=== PATIENT | male | born 1970 | race Caucasian/White ===

== ENCOUNTER 2021-11-15 20:30 | Emergency (ER) | payer MEDICARE, MEDICAID, SELFPAY ==
[2021-11-15 22:58] VITALS: BP 125/85; PULSE 97; RESP 16; TEMP 36.4; O2SAT 99; BMI 25.1
[2021-11-15] MEDS: Diphth,Pertus(ACell),Tet Adult 0.5 ML SYRINGE IM (23:11)
--- NOTE | 2021-11-15 23:16 | ED_ITS ---
HPI - Wound/Laceration General Chief Complaint: Wound/Laceration Stated Complaint: knife puncture on right hand Time Seen by Provider: 11/15/21 23:02 Source: patient and interpreter deaf Mode of arrival: ambulatory Limitations: language barrier History of Present Illness HPI narrative: 51-year-old male [id number] here with reports of left hand laceration after he was cutting chicken and his hand slipped causing him to cut his left hand with a knife. Tetanus status is unknown Related Data Allergies Allergy/AdvReac Type Severity Reaction Status Date / Time No Known Allergies Allergy Verified 11/15/21 23:02 Review of Systems Review of Systems: Yes all other systems are reviewed and are negative Constitutional: Constitutional: Reports no additional constitutional complaints, Denies body ache(s), Denies chills, Denies fever(s), Denies headache(s) and Denies weakness Eyes: Eyes: Reports no additional eye complaints and Denies change in vision ENT: Reports system reviewed and no additional complaints, except as documented, Denies dizziness, Denies headache(s), Denies nasal congestion, Denies nasal discharge and Denies neck pain Cardiovascular: Cardiovascular: Reports no additional cardiovascular complaints, Denies chest pain, Denies leg edema and Denies dyspnea Respiratory: Respiratory: Reports no additional respiratory complaints, Denies cough and Denies dyspnea Gastrointestinal: Gastrointestinal: Reports no additional gastrointestinal complaints, Denies abdominal pain, Denies diarrhea, Denies nausea and Denies vomiting Genitourinary: Genitourinary: Denies urinary incontinence Musculoskeletal: Musculoskeletal: Reports no additional musculoskeletal complaints, Denies back pain, Denies arthralgias, Denies joint swelling, Denies neck pain, Denies numbness and Denies tingling Integumentary/Breasts: Skin/Breast: Reports system reviewed and no additional complaints, except as docu and Denies rash Comments: Laceration Neurologic: Reports system reviewed and no additional complaints, except as documented, Denies Abnormal speech present, Denies dizziness, Denies headache(s), Denies numbness, Denies tingling and Denies weakness PMFSH Past Medical History Attestation statement: The following information was validated with the patient. Source: old records reviewed and nursing notes reviewed Social History Social History Advance Directives: No Advance Directives Information Provided: No Physical Exam Vital Signs: Vital Signs: Last Vital Signs Temp 97.5 F 11/15/21 22:58 Pulse 97 11/15/21 22:58 Resp 16 11/15/21 22:58 BP 125/85 11/15/21 22:58 Pulse Ox 99 11/15/21 22:58 BMI result Body Mass Index 25.1 Const: General: cooperative, healthy appearing, comfortable and no acute distress Orientation/consciousness: patient oriented x3 Limitations: no limitations HEENT: Head: Yes normal to inspection Ears: hearing grossly normal bilaterally General nose exam: Normal external nose present Face and sinus: Yes normal facial exam Mouth: Normal oral and palatal mucosa present Throat: Yes posterior oropharynx normal Eyes: General: appearance normal, both eyes and all related structures Pupils: Equal, round and reactive pupils present Neck: Neck: Yes normal visual inspection Chest: Chest palpation & inspection: normal inspection of the chest Resp: Effort & Inspection: normal respiratory effort Auscultation: clear to auscultation bilaterally Cardio: Rate: regular rate Rhythm: regular rhythm Peripheral pulses: Peripheral pulses 2+ throughout GI: Inspection: Yes normal to inspection Palpation (GI): Soft to palpation and nontender Auscultation: normal bowel sounds Back/Spine/Pelvis: Thoracic/Lumbar Spine: thoracic and lumbar spine normal to inspection Skin: General skin exam: no rashes or lesions noted Neuro: General: patient oriented x3, no focal motor deficits and normal sensation to monofilament Cranial nerves: Yes Equal, round and reactive pupils present Cognition (Neuro): normal cognition Speech: No Abnormal speech present Gait exam (Neuro): Normal gait present Motor exam (neuro): 5/5 motor strength present throughout Extrem: General: Yes normal to inspection Hand/finger images: 1. 1 cm laceration. Bleeding is controlled. Patient has full range of motion of distal digits. Normal sensation. Normal c ap refill. Able to flex and extend the digits with no difficulty Course Course Course Narrative: Laceration to left hand from a kitchen knife. The site was cleansed with saline and Betadine (irrigated copiously with 1 L). Topical skin adhesive was used with Steri-Strips. Patient's tetanus was updated. Reviewed worrisome signs and symptoms of when to return to the emergency department. Comfortable discharge home. MDM - Wound/Laceration Differential Diagnosis Differential diagnosis: Likely laceration Medical Records Attestation: I reviewed the patient's medical records. Lab Data Attestation: I reviewed the patient's lab results. Procedures Laceration Laceration 1: Site: hand Side (If applicable): left Size (cm): 1 Description: linear Depth: simple, single layer Pre-repair: wound explored, irrigated extensively and deep structures intact Skin layer closed with: other (skin adhesive/steri strips) Discharge Plan Discharge Clinical Impression: Laceration Patient Disposition: Home, Self-Care Instructions: Laceration (DC), Steristrips (ED) Additional Instructions: Try to let the Steri-Strips stay in place for 5 days. Do not get them wet Return for signs of infection, fever, drainage, odor Referrals: Physician,None [Primary Care Provider] - Interventions: ED Discharge Assessment Last Done: 11/15/21 23:16
== END 2021-11-15 23:16 | disposition home or self-care (01) ==
LOC: HO.ED 23:06
PROVIDERS: Emergency Provider Internal Medicine
DX: S61.411A Laceration without foreign body of right hand, initial encounter (principal); W26.0XXA Contact with knife, initial encounter; Y93.G3 Activity, cooking and baking; Y92.9 Unspecified place or not applicable; Y99.9 Unspecified external cause status
CPT/HCPCS: 12001; 90471; 90715; 99283; 99284

== ENCOUNTER 2022-05-21 22:06 | Emergency (ER) | payer MEDICARE, MEDICAID, SELFPAY ==
--- NOTE | ~2022-05-21 | US_ITS ---
EXAMINATION: US ABDOMEN LIMITED CLINICAL INFORMATION: Evaluate for acute cholecystitis. COMPARISON: None TECHNIQUE: Real-time imaging of the right upper quadrant abdominal viscera. FINDINGS: Cholelithiasis with small amount of pericholecystic free fluid. No evidence of gallbladder wall thickening. Negative Arzola's sign. The common bile duct measures 0.4 cm in diameter. US/US abdomen limited IMPRESSION: Cholelithiasis with mild pericholecystic free fluid but not significant wall thickening and a negative Arzola's sign. Findings are equivocal for mild acute cholecystitis in the appropriate clinical context. No biliary ductal dilatation.
--- NOTE | ~2022-05-21 | CT_ITS ---
EXAMINATION: CT ABDOMEN AND PELVIS WITHOUT CONTRAST CLINICAL INFORMATION: Left lower quadrant pain. COMPARISON: None TECHNIQUE: Multidetector volumetric imaging was performed from the superior aspect of the liver through the pubic symphysis. Sagittal and coronal reformatted images were obtained on the technologist's workstation. This CT examination was performed using dose optimization techniques as appropriate, variously including the following: *Automated exposure control *Adjustment of mA and/or kV according to patient size (this includes techniques or standardized protocols for targeted exams where dose is matched to indication/reason for exam; i.e. extremities or head) *Use of iterative reconstruction technique DLP: 554 mGy-cm FINDINGS: LUNG BASES: Limited evaluation due to respiratory motion. No focal consolidation or pleural effusion. Cardiomegaly. LIVER, GALLBLADDER, AND BILIARY TREE: Periportal edema. No discrete focal liver lesion in this limited noncontrast examination. Cholelithiasis with mild gallbladder wall thickening and mild pericholecystic fat stranding. No biliary ductal dilatation. PANCREAS: Limited noncontrast examination, unremarkable. SPLEEN: Limited noncontrast examination, unremarkable. ADRENAL GLANDS: No adrenal mass. KIDNEYS AND URETERS: No nephrolithiasis or hydronephrosis. BLADDER: Unremarkable. GASTROINTESTINAL TRACT: Postsurgical changes from total colectomy with a right lower quadrant ileostomy and parastomal hernia. No evidence of bowel obstruction. Nonspecific presacral fat stranding and soft tissue thickening. ABDOMINAL WALL: Right lower quadrant parastomal hernia. LYMPH NODES: Prominent periportal and retroperitoneal lymph nodes, nonspecific. VASCULAR: Limited noncontrast examination. Abdominal aorta is of normal diameter. PELVIC VISCERA: Normal appearance of the prostate. OSSEOUS STRUCTURES: No acute or aggressive appearing osseous abnormalities. CT/CT abdomen pelvis wo IV con IMPRESSION: Limited noncontrast examination. 1. Cholelithiasis with mild gallbladder wall thickening and subtle pericholecystic fat stranding suggesting the presence of acute cholecystitis in the appropriate clinical context. 2. Right lower quadrant parastomal hernia. 3. Nonspecific presacral soft tissue thickening, free fluid and distortion, possibly postsurgical in the setting of prior colectomy. Attention on follow-up in subsequent examinations is recommended, comparison with prior imaging could be also helpful to ensure stability. 4. Prominent periportal and retroperitoneal lymph nodes are indeterminate, could be infectious, inflammatory or malignant. As above, attention on follow-up or correlation with prior images is recommended. 5. Cardiomegaly.
[2022-05-21 22:21] VITALS: BP 124/90; PULSE 114; RESP 16; TEMP 36.5; O2SAT 98; BMI 25.5
[2022-05-21 22:51] LABS: Basophils Percent Auto 0.2 % (0-2); Eosinophils Percent Auto 0.1 % (0-4); Hematocrit 41.4 % (42.0-52.0); Hemoglobin 12.5 g/dl (14.0-18.0); Imm Gran Abs Auto 0.02 X10*3/uL (0.00-0.03); Imm Gran Pct Auto 0.2 % (0.0-0.4); Lymphocytes Absolute Auto 1.4 X10*3/uL (1.2-4.9); Lymphocytes Percent Auto 16.3 % (20-40); MANUAL DIFF FLAG NO; Mean Corpuscular HGB Conc 30.2 g/dl (31.0-36.0); Mean Corpuscular Hemoglobin 21.9 pg (27.0-33.0); Mean Corpuscular Volume 72.6 fL (80.0-98.0); Mean Platelet Volume 10.3 fL (9.4-12.4); Monocytes Absolute Auto 0.5 X10*3/uL (0.1-1.2); Neutrophils Absolute Auto 6.6 x10*3/uL (2.0-8.3); Neutrophils Percent Auto 77.2 % (45-73); Platelet Count 222 X10*3/uL (160-400); Red Cell Distribution Width 17.3 % (11.0-16.0); White Blood Count 8.5 X10*3/uL (4.8-10.8)
[2022-05-21 22:53] LABS: Appearance Urine Clear; Color Urine Yellow; Glucose Urine UA Negative (Negative); Leukocyte Esterase Urine Negative (Negative); Nitrite Urine Negative (Negative); Specific Gravity - Urine 1.025 (1.005-1.025); UMIC TRIGGER UACC YES; Urine Blood Negative (Negative); Urine Ketones Negative (Negative); Urine Protein 100 (2+) mg/dL (Neg-Trace)
[2022-05-21 23:02] LABS: Bacteria Urine None Seen (None Seen); RBC Urine 0-2 /HPF (0-2); Squamous Epithelial Cell Urine 0-2 /HPF (0-2); WBC Urine 0-5 /HPF (0-5)
[2022-05-21 23:15] LABS: Anion Gap 17 (12-20); Blood Urea Nitrogen 15 mg/dL (9-16); Carbon Dioxide 20 mmol/L (22-29); Chloride 107 mmol/L (96-108); Creatinine Clr Calc Pharmacy 75.6; Estimated Glomerular Filt Rate > 60; Glucose Random 161 mg/dL (60-115); Potassium 4.4 mmol/L (3.3-5.1); Sodium 140 mmol/L (135-145)
--- NOTE | 2022-05-22 01:24 | ED_ITS ---
HPI - Abdominal Pain General Chief Complaint: Abdominal Pain Stated Complaint: upper abd pain Time Seen by Provider: 05/22/22 01:18 Source: patient Mode of arrival: ambulatory History of Present Illness HPI narrative: Patient's history of colonic polyps precancerous status post total colectomy in 2000 comes here for pain in the left lower quadrant for last 2 days slightly nauseated vomited 2 times no fever no chills no pain in right upper quadrant stool in the colostomy bag normal in consistency no urinary complaints Related Data Previous Rx's Medication Instructions Recorded tramadol 50 mg tablet 50 mg PO Q6H PRN pain #20 tabs 05/22/22 Allergies Allergy/AdvReac Type Severity Reaction Status Date / Time No Known Allergies Allergy Verified 11/15/21 23:02 Review of Systems Review of Systems Yes all other systems are reviewed and are negative [facility] Past Medical History Medical History (Updated 05/22/22 @ 05:12 by Vikas Lilly MD) Colonic polyp Surgical History (Updated 05/22/22 @ 05:12 by Vikas Lilly MD) History of total colectomy Social History Social History Advance Directives: No Physical Exam ED Vital Signs: Vital Signs - 24 hr 05/21/22 22:21 05/22/22 01:29 05/22/22 03:17 Temperature 97.7 F 97.8 F Pulse Rate 114 H 106 H 99 Respiratory Rate 16 15 18 Blood Pressure 124/90 H 129/98 H 113/69 Pulse Oximetry 98 98 99 Oxygen Delivery Method Room Air Room Air Room Air 05/22/22 03:34 05/22/22 04:22 Temperature 98.0 F Pulse Rate 104 H 106 H Respiratory Rate 20 16 Blood Pressure 119/93 H 127/91 H Pulse Oximetry 100 97 Oxygen Delivery Method Room Air Room Air BMI result Body Mass Index 25.5 Appearance: Alert. Oriented X3. No acute distress. Eyes: No pallor or icterus ENT: Pharynx normal. Oral Mucosa moist Neck: Normal inspection. Neck supple. CVS: Normal heart rate and rhythm. Pulses normal. Respiratory: No respiratory distress. Equal air entry bilateral, no wheezing/rales/rhonchi Abdomen: Soft Colostomy bag in right lower quadrant tenderness left lower quadrant no rebound tenderness or guarding, Arzola sign negative, Bowel sounds are present, no mass palpable, no CVA tenderness Skin: Skin warm and dry. Normal skin color. Normal skin turgor. Extremities: No lower extremity edema. No calf tenderness Neuro: Oriented X 3. Medications Administered Discontinued Medications Generic Name Dose Route Start Last Admin Trade Name Freq PRN Reason Stop Dose Admin Morphine Sulfate 4 mg 05/22/22 04:02 05/22/22 04:16 Morphine Sulfate 4 Mg/Ml Cartridge IVPUSH 05/22/22 04:03 4 mg ONCE ONE Administration Protocol Ondansetron HCl 4 mg 05/22/22 04:02 05/22/22 04:16 Ondansetron Hcl 4 Mg/2 Ml Vial IVPUSH 05/22/22 04:03 4 mg ONCE ONE Administration MDM - Abdominal Pain MDM Narrative Medical decision making narrative: Patient left lower quadrant pain status post total colectomy etiology not very clear CT scan negative for any acute pathology in left lower abdomen. Incidental noticed to have gallstone but patient does not have any pain in the right upper quadrant patient advised to follow with PCP or surgeon for further evaluation Lab Data Attestation: I reviewed the patient's lab results. Result diagrams: 05/21/22 22:42 05/21/22 22:42 Labs: Lab Results 05/21/22 05/21/22 05/21/22 Range/Units 22:42 22:42 22:42 WBC 8.5 (4.8-10.8) X10*3/uL RBC 5.70 (4.60-5.80) X10*6/uL Hgb 12.5 L (14.0-18.0) g/dl Hct 41.4 L (42.0-52.0) % MCV 72.6 L (80.0-98.0) fL MCH 21.9 L (27.0-33.0) pg MCHC 30.2 L (31.0-36.0) g/dl RDW 17.3 H (11.0-16.0) % Plt Count 222 (160-400) X10*3/uL MPV 10.3 (9.4-12.4) fL Immature Gran % (Auto) 0.2 (0.0-0.4) % Neut % (Auto) 77.2 H (45-73) % Lymph % (Auto) 16.3 L (20-40) % [place] % (Auto) 6.0 (2-11) % Eos % (Auto) 0.1 (0-4) % Baso % (Auto) 0.2 (0-2) % Lymph # (Auto) 1.4 (1.2-4.9) X10*3/uL [place] # (Auto) 0.5 (0.1-1.2) X10*3/uL Eos # (Auto) 0.0 (0.0-0.4) X10*3/uL Baso # (Auto) 0.0 (0.0-0.2) X10*3/uL Abs Immat Gran (auto) 0.02 (0.00-0.03) X10*3/uL Absolute Neuts (auto) 6.6 (2.0-8.3) x10*3/uL Absolute Nucleated RBC 0.000 (0.0-0.012) X10*3/uL Nucleated RBC % (auto) 0.0 (0.0-0.2) /100WBC Sodium 140 (135-145) mmol/L Potassium 4.4 (3.3-5.1) mmol/L Chloride 107 (96-108) mmol/L Carbon Dioxide 20 L (22-29) mmol/L Anion Gap 17 (12-20) BUN 15 (9-16) mg/dL Creatinine 1.18 (0.5-1.4) mg/dL Estim Creat Clear Calc 75.6 Estimated GFR > 60 Random Glucose 161 H (60-115) mg/dL Lactic Acid (0.5-2.0) mmol/L Calcium 9.0 (8.4-10.2) mg/dL Total Bilirubin 1.5 H (0.0-1.0) mg/dL Direct Bilirubin 0.6 H (0.0-0.5) mg/dL AST 30 (5-37) U/L ALT 38 (0-40) U/L Alkaline Phosphatase 89 (39-117) U/L Total Protein 6.9 (6.5-8.0) g/dL Albumin 4.3 (3.5-5.0) g/dL Lipase 17 (8-78) U/L Urine Color Yellow Urine Appearance Clear Urine pH 5.0 (5.0-9.0) Ur Specific [place] 1.025 (1.005-1.025) Urine Protein 100 (2+) H (Neg-Trace) mg/dL Urine Glucose (UA) Negative (Negative) mg/dL Urine Ketones Negative (Negative) mg/dL Urine Blood Negative (Negative) Urine Nitrite Negative (Negative) Ur Leukocyte Esterase Negative (Negative) Urine RBC 0-2 (0-2) /HPF Urine WBC 0-5 (0-5) /HPF Ur Squamous Epith Cells 0-2 (0-2) /HPF Urine Bacteria None Seen (None Seen) Hyaline Casts 6-10 (0-2) /LPF 05/22/22 Range/Units 01:56 WBC (4.8-10.8) X10*3/uL RBC (4.60-5.80) X10*6/uL Hgb (14.0-18.0) g/dl Hct (42.0-52.0) % MCV (80.0-98.0) fL MCH (27.0-33.0) pg MCHC (31.0-36.0) g/dl RDW (11.0-16.0) % Plt Count (160-400) X10*3/uL MPV (9.4-12.4) fL Immature Gran % (Auto) (0.0-0.4) % Neut % (Auto) (45-73) % Lymph % (Auto) (20-40) % [place] % (Auto) (2-11) % Eos % (Auto) (0-4) % Baso % (Auto) (0-2) % Lymph # (Auto) (1.2-4.9) X10*3/uL [place] # (Auto) (0.1-1.2) X10*3/uL Eos # (Auto) (0.0-0.4) X10*3/uL Baso # (Auto) (0.0-0.2) X10*3/uL Abs Immat Gran (auto) (0.00-0.03) X10*3/uL Absolute Neuts (auto) (2.0-8.3) x10*3/uL Absolute Nucleated RBC (0.0-0.012) X10*3/uL Nucleated RBC % (auto) (0.0-0.2) /100WBC Sodium (135-145) mmol/L Potassium (3.3-5.1) mmol/L Chloride (96-108) mmol/L Carbon Dioxide (22-29) mmol/L Anion Gap (12-20) BUN (9-16) mg/dL Creatinine (0.5-1.4) mg/dL Estim Creat Clear Calc Estimated GFR Random Glucose (60-115) mg/dL Lactic Acid 1.6 (0.5-2.0) mmol/L Calcium (8.4-10.2) mg/dL Total Bilirubin (0.0-1.0) mg/dL Direct Bilirubin (0.0-0.5) mg/dL AST (5-37) U/L ALT (0-40) U/L Alkaline Phosphatase (39-117) U/L Total Protein (6.5-8.0) g/dL Albumin (3.5-5.0) g/dL Lipase (8-78) U/L Urine Color Urine Appearance Urine pH (5.0-9.0) Ur Specific [place] (1.005-1.025) Urine Protein (Neg-Trace) mg/dL Urine Glucose (UA) (Negative) mg/dL Urine Ketones (Negative) mg/dL Urine Blood (Negative) Urine Nitrite (Negative) Ur Leukocyte Esterase (Negative) Urine RBC (0-2) /HPF Urine WBC (0-5) /HPF Ur Squamous Epith Cells (0-2) /HPF Urine Bacteria (None Seen) Hyaline Casts (0-2) /LPF Discharge Plan Discharge Clinical Impression: Abdominal pain Patient Disposition: Home, Self-Care Additional Instructions: Cause of your lower abdominal pain is not clear-CT scan did not show any significant abdominal drain that area Incidentally noticed that you have gallstones Drink plenty of fluids Pain medicine as prescribed Report to the ER/PCP if increased pain in right upper abdomen/vomiting/fever Prescriptions: New tramadol 50 mg tablet 50 mg PO Q6H PRN (Reason: pain) Qty: 20 0RF
[2022-05-22 01:29] VITALS: BP 129/98; PULSE 106; RESP 15; TEMP 36.6; O2SAT 98
--- NOTE | 2022-05-22 01:31 | ECG_ITS ---
Test Reason : TACHYCARDIA Blood Pressure : / mmHG Vent. Rate : 101 BPM Atrial Rate : 101 BPM P-R Int : 156 ms QRS Dur : 164 ms QT Int : 416 ms P-R-T Axes : 059 -73 083 degrees QTc Int : 539 ms Sinus tachycardia Left axis deviation Left bundle branch block Abnormal ECG No previous ECGs available Referred By: Generic ED Physician Electronically Signed By:AHSAN WOOTEN MD
[2022-05-22 01:52] LABS: Alanine Aminotransferase 38 U/L (0-40); Albumin Level 4.3 g/dL (3.5-5.0); Alkaline Phosphatase 89 U/L (39-117); Aspartate Amino Transferase 30 U/L (5-37); Bilirubin Direct 0.6 mg/dL (0.0-0.5); Bilirubin Total 1.5 mg/dL (0.0-1.0); Lipase 17 U/L (8-78); Total Protein 6.9 g/dL (6.5-8.0)
[2022-05-22 02:17] LABS: Lactic Acid 1.6 mmol/L (0.5-2.0)
[2022-05-22 03:17] VITALS: BP 113/69; PULSE 99; RESP 18; O2SAT 99
[2022-05-22 03:34] VITALS: BP 119/93; PULSE 104; RESP 20; TEMP 36.7; O2SAT 100
[2022-05-22] MEDS: Morphine Sulfate 4 MG/ML CARTRIDGE IVPUSH (04:16)
[2022-05-22] MEDS: ondansetron HCL 4 MG/2 ML VIAL IVPUSH (04:16)
[2022-05-22 04:22] VITALS: BP 127/91; PULSE 106; RESP 16; O2SAT 97
[2022-05-22 05:21] VITALS: BP 110/85; PULSE 101; RESP 18; O2SAT 94
== END 2022-05-22 05:23 | disposition home or self-care (01) ==
PROVIDERS: Emergency Provider Internal Medicine
DX: R10.32 Left lower quadrant pain (principal); K80.20 Calculus of gallbladder without cholecystitis without obstruction; Z93.3 Colostomy status
CPT/HCPCS: 36415; 74176; 76705; 80048; 80076; 81001; 83605; 83690; 85025; 93005; 96374; 96375; 99284; 99285; J2270; J2405

== ENCOUNTER 2022-05-30 15:11 | Emergency (ER) | payer MEDICARE, MEDICAID, SELFPAY ==
[2022-05-30 15:44] VITALS: BP 119/77; PULSE 107; RESP 18; TEMP 36.8; O2SAT 99; BMI 23.6
--- NOTE | 2022-05-30 16:34 | ED_ITS ---
HPI - Wound/Laceration General Chief Complaint: Wound/Laceration Stated Complaint: Finger laceration Time Seen by Provider: 05/30/22 16:06 Source: patient Mode of arrival: ambulatory Limitations: language barrier (Kiswahili-speaking) History of Present Illness HPI narrative: Patient is a 52-year-old male with a past medical history of HTN, HLD, heart failure who presents to the ED today for evaluation of finger laceration on his left index finger. He states that about an hour ago he was trying to remove the metal piece from his shower when he pulled the piece and it cut his left index finger. He reports associated pain over the laceration. He stop the bleeding by holding pressure and wrapped his finger with a bandage and immediately came here for treatment. Denies any other complaints at this time. He reports an up-to-date tetanus within the last 2 years. Onset (ago): hour(s) (1) Extremity Location: left: hand (Left index finger) Body four view annotation: 1. Laceration Place: home Patient tetanus UTD: Yes Context: accidental Associated symptoms: pain Treatments prior to arrival: bandage Related Data Previous Rx's Medication Instructions Recorded tramadol 50 mg tablet 50 mg PO Q6H PRN pain #20 tabs 05/22/22 cephalexin 500 mg capsule 500 mg PO Q6H 7 days #28 caps 05/30/22 Allergies Allergy/AdvReac Type Severity Reaction Status Date / Time No Known Allergies Allergy Verified 11/15/21 23:02 Review of Systems Review of Systems: Constitutional : No Fever, No Chills, Cardiovascular : No Chest Pain, No SOB Respiratory : No Dyspnea Gastrointestinal : No abdominal pain Musculoskeletal : No Joint Swelling Skin : positive skin laceration, No Foreign bodies, No rash, No surrounding erythema Neuro : No Weakness, No Numbness/tingling Psych : No SI/HI/thoughts of self injury Yes all other systems are reviewed and are negative [facility] Past Medical History Attestation statement: The following information was validated with the patient. Source: old records reviewed, obtained from family and nursing notes reviewed Medical History Colonic polyp Surgical History History of total colectomy Social History Social History Advance Directives: No Advance Directives Information Provided: No Physical Exam Vital Signs: Vital Signs: Last Vital Signs Temp 98.2 F 05/30/22 15:44 Pulse 107 H 05/30/22 15:44 Resp 18 05/30/22 15:44 BP 119/77 05/30/22 15:44 Pulse Ox 99 05/30/22 15:44 O2 Del Method 05/30/22 15:44 BMI result Body Mass Index 23.6 vital signs have been reviewed as normal and appeared to be correct. Blood pressure normal Heart rate normal. Respiration rate normal. Temperature normal. Oxygen saturation normal. Appearance: Alert. Oriented X3. No acute distress. Head: Normal external exam. Normocephalic. Atraumatic. Eyes: PERRLA. EOMI. Conjunctiva and sclera normal. Eyelids normal. ENT: Pharynx normal. Uvula midline. Moist mucous membranes. Neck: Normal inspection. Neck supple. FROM. CVS: Normal heart rate and rhythm. Respiratory: No respiratory distress. Painless inspiration. Skin: A 1.5 cm linear laceration with a flap noted on the left distal index finger. no active bleeding, no erythema or edema noted. NVI. Skin warm and dry. Normal skin color. Normal skin turgor. Extremities: No lower extremity edema. Extremities exhibit normal range of motion. Extremities nontender. Neuro: Oriented X 3. No motor deficit. No sensory deficit. Reflexes normal. Normal steady gait. No focal neuro deficits noted. Vascular: + radial pulses/+ 2 distal pedal pulses/+2 dorsalis pedis b/l. Normal cap refill. No cyanosis noted to upper extremity nails and lower extremity toes nails. Course Course Course Narrative: Patient is a 52-year-old male with a past medical history of HTN, HLD, heart failure who presents to the ED today for evaluation of finger laceration on his left index finger. He states that about an hour ago he was trying to remove the metal piece from his shower when he pulled the piece and it cut his left index finger. He reports associated pain over the laceration. He stop the bleeding by holding pressure and wrapped his finger with a bandage and immediately came here for treatment. Denies any other complaints at this time. He reports an up-to-date tetanus within the last 2 years. A 1.5 cm linear laceration with a flap noted on the left distal index finger actively bleeding, no erythema or edema noted, NVI. Laceration was cleaned with copious amounts of saline as and prepped with iodine. 4 cc's of lidocaine 1% was used to anesthetize the area and 4 sutures of 4-0 nylon were placed. Sutures were wrapped with nonadherent dressing. Discussed keeping sutures covered for next 24-48 hours then leaving the sutures open to air, avoiding soaking/submerging the sutures, and looking for signs of infection. Discussed returning in 10 days for suture removal. Will prescribe tramadol for pain and Keflex for infection prophylaxis. Patient verbalizes understanding and agrees with plan. Medications Administered Discontinued Medications Generic Name Dose Route Start Last Admin Trade Name Freq PRN Reason Stop Dose Admin Lidocaine HCl 5 ml 05/30/22 16:09 05/30/22 16:46 Lidocaine Hcl 2 % Mpf 5 Ml Vial SUBCUT 05/30/22 16:10 5 ml ONCE ONE Administration MDM - Wound/Laceration Medical Records Attestation: I reviewed the patient's medical records. Procedures Laceration Laceration 1: Site: hand (Index finger) Side (If applicable): left Size (cm): 1.5 Description: linear and flap Depth: simple, single layer Local Anesthetic: lidocaine 1% Amount of anesthesia used (mL): 4 Pre-repair: wound explored and irrigated extensively Skin layer closed with: nylon Size (cm): 4-0 Number of sutures: 4 Technique: simple, interrupted Discharge Plan Discharge Clinical Impression: Laceration Patient Disposition: Home, Self-Care Instructions: Finger Laceration (ED) Additional Instructions: para retiro de sutura devoluci?n en 10 d?as Prescriptions: New cephalexin 500 mg capsule 500 mg PO Q6H 7 Days Qty: 28 0RF No Action tramadol 50 mg tablet 50 mg PO Q6H PRN (Reason: pain) Qty: 20 0RF Referrals: Lanie Kwon PA [Emergency Midlevel Provider] - 10 days (for suture removal return in 10 days para retiro de sutura devoluci?n en 10 d?as) Interventions: ED Discharge Assessment Last Done: 05/30/22 16:49 Discharge Date/Time: 05/30/22 16:50 Print Language: Kiswahili
[2022-05-30] MEDS: Lidocaine HCl 2 % MPF 5 ML VIAL SUBCUT (16:46)
== END 2022-05-30 16:50 | disposition home or self-care (01) ==
PROVIDERS: Emergency Provider Emergency Medicine Emergency Medical Services
DX: S61.211A Laceration without foreign body of left index finger without damage to nail, initial encounter (principal); W26.8XXA Contact with other sharp object(s), not elsewhere classified, initial encounter; Y93.E9 Activity, other interior property and clothing maintenance; Y92.012 Bathroom of single-family (private) house as the place of occurrence of the external cause; Y99.9 Unspecified external cause status
CPT/HCPCS: 12001; 99283; 99284

== ENCOUNTER 2022-06-09 08:51 | Emergency (ER) | payer MEDICARE, MEDICAID, SELFPAY ==
[2022-06-09 08:52] VITALS: BP 110/66; PULSE 64; RESP 18; TEMP 36.8; O2SAT 98; BMI 24.2
--- NOTE | 2022-06-09 09:02 | ED.SKABFB ---
HPI - Skin/Abscess/Foreign Bdy General Chief complaint: Skin/Abscess/Foreign Body Stated complaint: suture removal Time Seen by Provider: 06/09/22 09:00 Source: patient Mode of arrival: ambulatory Limitations: no limitations History of Present Illness HPI narrative: 2-year-old male presents to the ER for evaluation his wound and for suture removal. Ten days ago he had sutures placed in his left index finger after he cut it on a window. He states it has been healing appropriately. No redness, drainage, pain. He would like to get his sutures removed today. MD complaint: laceration Tetanus up to date: yes Location: L hand Associated symptoms: denies other symptoms Treatments prior to arrival: none Related Data Previous Rx's Medication Instructions Recorded tramadol 50 mg tablet 50 mg PO Q6H PRN pain #20 tabs 05/22/22 cephalexin 500 mg capsule 500 mg PO Q6H 7 days #28 caps 05/30/22 Allergies Allergy/AdvReac Type Severity Reaction Status Date / Time No Known Allergies Allergy Verified 11/15/21 23:02 Review of Systems Review of Systems: Constitutional: No Fever, No Chills Gastrointestinal: No Nausea, No Vomiting Musculoskeletal: No joint pain, No Myalgias Skin: No Skin Lesions, No rash Neuro: No Weakness, No Numbness Heme/Lymph: No Bruising, No Lymphadenopathy PMFSH Past Medical History Medical History Colonic polyp Surgical History History of total colectomy Social History Social History Advance Directives: No Advance Directives Information Provided: No Physical Exam Vital Signs: Vital Signs: Last Vital Signs Temp 98.3 F 06/09/22 08:52 Pulse 64 06/09/22 08:52 Resp 18 06/09/22 08:52 BP 110/66 06/09/22 08:52 Pulse Ox 98 06/09/22 08:52 O2 Del Method 06/09/22 08:52 BMI result Body Mass Index 24.2 Appearance: Alert. Oriented X3. No acute distress. HEENT: normal inspection CVS: Normal heart rate and rhythm. Pulses normal. Respiratory: No respiratory distress. Skin: Skin warm and dry. Normal skin color. Normal skin turgor. No rashes. Extremities: Left distal index finger with a well-healing laceration, for sutures in place. No surrounding erythema or drainage. Nontender. Neurovascularly intact distally. Neuro: Oriented X 3. Grossly normal, nonfocal Course Course Course Narrative: 52-year-old male presents to the ER for evaluation of left index finger laceration sustained 10 days ago requiring 4 sutures for repair. Wound is healing appropriately. All 4 sutures were removed, tolerated well. Wound is approximated well. Patient counseled. Stable for discharge home. Discharge Plan Discharge Clinical Impression: Visit for suture removal Patient Disposition: Home, Self-Care Instructions: Stitches Removal (ED) Prescriptions: No Action tramadol 50 mg tablet 50 mg PO Q6H PRN (Reason: pain) Qty: 20 0RF cephalexin 500 mg capsule 500 mg PO Q6H 7 Days Qty: 28 0RF
== END 2022-06-09 09:35 | disposition home or self-care (01) ==
PROVIDERS: Emergency Provider Emergency Medicine
DX: Z48.02 Encounter for removal of sutures (principal); S61.211D Laceration without foreign body of left index finger without damage to nail, subsequent encounter; W25.XXXD Contact with sharp glass, subsequent encounter
CPT/HCPCS: 99282; 99283

== ENCOUNTER 2022-08-29 01:06 | Emergency (ER) | payer MEDICARE, MEDICAID, SELFPAY ==
--- NOTE | 2022-08-29 | ECG_ITS ---
Test Reason : shortness of breath Blood Pressure : / mmHG Vent. Rate : 110 BPM Atrial Rate : 110 BPM P-R Int : 142 ms QRS Dur : 164 ms QT Int : 382 ms P-R-T Axes : 048 -69 090 degrees QTc Int : 516 ms Sinus tachycardia Possible Left atrial enlargement Left axis deviation Left bundle branch block Abnormal ECG When compared with ECG of 22-MAY-2022 01:42, No significant change was found Referred By: Generic ED Physician Electronically Signed By:Edmar Moura
[2022-08-29 01:16] VITALS: BP 120/94; PULSE 107; RESP 20; TEMP 36.6; O2SAT 100; BMI 24.3
[2022-08-29 01:49] LABS: MANUAL DIFF FLAG NO
[2022-08-29 01:51] LABS: Basophils Percent Auto 0.2 % (0-2); Eosinophils Percent Auto 0.7 % (0-4); Hematocrit 42.2 % (42.0-52.0); Hemoglobin 13.1 g/dl (14.0-18.0); Imm Gran Abs Auto 0.01 X10*3/uL (0.00-0.03); Imm Gran Pct Auto 0.2 % (0.0-0.4); Lymphocytes Absolute Auto 1.9 X10*3/uL (1.2-4.9); Lymphocytes Percent Auto 34.8 % (20-40); Mean Corpuscular Hemoglobin 22.4 pg (27.0-33.0); Mean Corpuscular Volume 72.1 fL (80.0-98.0); Monocytes Absolute Auto 0.4 X10*3/uL (0.1-1.2); Monocytes Percent Auto 6.7 % (2-11); NRBC Pct Auto 0.4 /100WBC (0.0-0.2); Neutrophils Absolute Auto 3.2 x10*3/uL (2.0-8.3); Neutrophils Percent Auto 57.4 % (45-73); Platelet Count 158 X10*3/uL (160-400); Red Blood Count 5.85 X10*6/uL (4.60-5.80); White Blood Count 5.5 X10*3/uL (4.8-10.8)
--- NOTE | 2022-08-29 01:58 | ED_ITS ---
HPI - General Adult General Chief complaint: General Medical Stated complaint: sob, headaches, dizziness Time Seen by Provider: 08/29/22 01:58 Source: patient Mode of arrival: ambulatory Limitations: no limitations History of Present Illness HPI narrative: patient with history of anxiety, adenomatous polyposis status post total colectomy 2000 chronic iron deficiency anemia received iron transfusion for the 1st time yesterday at 14:00 came home was feeling fine at 23:00 while watching TV , noticed shortness of breath headache mild abdominal pain nausea dizziness with increased anxiety no vomiting no chest pain Related Data Previous Rx's Medication Instructions Recorded tramadol 50 mg tablet 50 mg PO Q6H PRN pain #20 tabs 05/22/22 cephalexin 500 mg capsule 500 mg PO Q6H 7 days #28 caps 05/30/22 Allergies Allergy/AdvReac Type Severity Reaction Status Date / Time No Known Allergies Allergy Verified 11/15/21 23:02 Review of Systems Review of Systems: Yes all other systems are reviewed and are negative [facility] Past Medical History Medical History Colonic polyp Surgical History History of total colectomy Social History Social History Advance Directives: No Physical Exam ED Vital Signs: Vital Signs - 24 hr 08/29/22 01:16 08/29/22 03:03 08/29/22 03:09 Temperature 97.9 F Pulse Rate 107 H 103 H Respiratory Rate 20 16 16 Blood Pressure 120/94 H 94/71 Pulse Oximetry 100 97 Oxygen Delivery Method Room Air Room Air 08/29/22 03:33 08/29/22 05:38 Temperature Pulse Rate 91 101 H Respiratory Rate 16 20 Blood Pressure 99/75 102/67 Pulse Oximetry 99 Oxygen Delivery Method Room Air BMI result Body Mass Index 24.3 Appearance: Alert. Oriented X3. No acute distress. anxious Eyes: PERRLA, No Nystagmus ENT: Pharynx normal. Oral Mucosa moist Neck: Normal inspection. Neck supple. CVS: Normal heart rate and rhythm. Pulses normal. Respiratory: No respiratory distress. Equal air entry bilateral, no whee zing/rales/rhonchi Abdomen: Soft and nontender. Bowel sounds are present, no mass palpable, no CVA tenderness Skin: Skin warm and dry. Normal skin color. Normal skin turgor. Extremities: No lower extremity edema. No calf tenderness Neuro: Oriented X 3. No motor deficit. No sensory deficit.No cerebellar signs , cranial nerves II-XII intact Medications Administered Discontinued Medications Generic Name Dose Route Start Last Admin Trade Name Ronaldoq PRN Reason Stop Dose Admin Sodium Chloride 1,000 mls @ 999 mls/hr 08/29/22 02:32 08/29/22 04:28 Ns IV 08/29/22 03:32 Infused .Q1H1M ONE Infusion Lorazepam 1 mg 08/29/22 02:32 08/29/22 03:05 Lorazepam 2 Mg/Ml Vial IVPUSH 08/29/22 02:33 1 mg ONCE ONE Administration Morphine Sulfate 4 mg 08/29/22 02:32 08/29/22 03:03 Morphine Sulfate 4 Mg/Ml Cartridge IVPUSH 08/29/22 02:33 4 mg ONCE ONE Administration Protocol Ondansetron HCl 4 mg 08/29/22 02:32 08/29/22 03:01 Ondansetron Hcl 4 Mg/2 Ml Vial IVPUSH 08/29/22 02:33 4 mg ONCE ONE Administration Medical Decision Making Medical Decision Making [facility] Narrative: patient and multiple syndromes difficult to sleep in the night with increased anxiety workup is negative discharge the patient home Lab Data [facility] Lab Attestation statement: I reviewed the patient's lab results. 08/29/22 01:45 08/29/22 01:45 Labs: Lab Results 08/29/22 08/29/22 08/29/22 Range/Units 01:45 01:45 01:45 WBC 5.5 (4.8-10.8) X10*3/uL RBC 5.85 H (4.60-5.80) X10*6/uL Hgb 13.1 L (14.0-18.0) g/dl Hct 42.2 (42.0-52.0) % MCV 72.1 L (80.0-98.0) fL MCH 22.4 L (27.0-33.0) pg MCHC 31.0 (31.0-36.0) g/dl RDW 20.0 H (11.0-16.0) % Plt Count 158 L D (160-400) X10*3/uL MPV 10.0 (9.4-12.4) fL Immature Gran % (Auto) 0.2 (0.0-0.4) % Neut % (Auto) 57.4 (45-73) % Lymph % (Auto) 34.8 (20-40) % [place] % (Auto) 6.7 (2-11) % Eos % (Auto) 0.7 (0-4) % Baso % (Auto) 0.2 (0-2) % Lymph # (Auto) 1.9 (1.2-4.9) X10*3/uL [place] # (Auto) 0.4 (0.1-1.2) X10*3/uL Eos # (Auto) 0.0 (0.0-0.4) X10*3/uL Baso # (Auto) 0.0 (0.0-0.2) X10*3/uL Abs Immat Gran (auto) 0.01 (0.00-0.03) X10*3/uL Absolute Neuts (auto) 3.2 (2.0-8.3) x10*3/uL Absolute Nucleated RBC 0.020 H (0.0-0.012) X10*3/uL Nucleated RBC % (auto) 0.4 H (0.0-0.2) /100WBC Sodium 139 (135-145) mmol/L Potassium 4.5 (3.3-5.1) mmol/L Chloride 109 H (96-108) mmol/L Carbon Dioxide 20 L (22-29) mmol/L Anion Gap 15 (12-20) BUN 20 H (9-16) mg/dL Creatinine 1.10 (0.5-1.4) mg/dL Estim Creat Clear Calc 81.1 Estimated GFR > 60 Random Glucose 148 H (60-115) mg/dL Calcium 8.9 (8.4-10.2) mg/dL Troponin I High Sens 8.8 (<3.5-35.0) ng/L Discharge Plan Discharge Clinical Impression: Anxiety, Abdominal pain Patient Disposition: Home, Self-Care Instructions: Abdominal Pain (ED), Anxiety (ED) Additional Instructions: drink plenty of fluids follow with PCP as needed taking medication as prescribed by PCP Prescriptions: No Action tramadol 50 mg tablet 50 mg PO Q6H PRN (Reason: pain) Qty: 20 0RF cephalexin 500 mg capsule 500 mg PO Q6H 7 Days Qty: 28 0RF Interventions: ED Discharge Assessment Last Done: 08/29/22 05:43 Discharge Date/Time: 08/29/22 05:43
[2022-08-29 02:03] LABS: Anion Gap 15 (12-20); Blood Urea Nitrogen 20 mg/dL (9-16); Calcium 8.9 mg/dL (8.4-10.2); Carbon Dioxide 20 mmol/L (22-29); Chloride 109 mmol/L (96-108); Creatinine Clr Calc Pharmacy 81.1; Estimated Glomerular Filt Rate > 60; Glucose Random 148 mg/dL (60-115); Potassium 4.5 mmol/L (3.3-5.1); Sodium 139 mmol/L (135-145)
[2022-08-29 02:10] LABS: Troponin-I High Sensitivity 8.8 ng/L (<3.5-35.0)
[2022-08-29] MEDS: ondansetron HCL 4 MG/2 ML VIAL IVPUSH (03:01)
[2022-08-29 03:03] VITALS: RESP 16
[2022-08-29] MEDS: Morphine Sulfate 4 MG/ML CARTRIDGE IVPUSH (03:03)
[2022-08-29] MEDS: 0.9 % Sodium Chloride 1,000 ML 999 ML IV (03:05)
[2022-08-29] MEDS: LORazepam 2 MG/ML VIAL 1 MG IVPUSH (03:05)
[2022-08-29 03:09] VITALS: BP 94/71; PULSE 103; RESP 16; O2SAT 97
[2022-08-29 03:33] VITALS: BP 99/75; PULSE 91; RESP 16
--- NOTE | 2022-08-29 05:37 | PC.NURSE ---
PT reports effectiveness of meds given.
[2022-08-29 05:38] VITALS: BP 102/67; PULSE 101; RESP 20; O2SAT 99
== END 2022-08-29 05:43 | disposition home or self-care (01) ==
PROVIDERS: Emergency Provider Internal Medicine
DX: F41.9 Anxiety disorder, unspecified (principal); R10.9 Unspecified abdominal pain
CPT/HCPCS: 36415; 80048; 84484; 85025; 93005; 96361; 96374; 96375; 99284; J2060; J2270; J2405

== ENCOUNTER 2022-09-02 20:58 | Emergency (ER) | payer MEDICARE, MEDICAID, SELFPAY ==
--- NOTE | 2022-09-02 | ECG_ITS ---
Test Reason : CHEST PAIN Blood Pressure : / mmHG Vent. Rate : 105 BPM Atrial Rate : 105 BPM P-R Int : 148 ms QRS Dur : 166 ms QT Int : 396 ms P-R-T Axes : 064 -88 091 degrees QTc Int : 523 ms Sinus tachycardia Possible Left atrial enlargement Left axis deviation Left bundle branch block Left ventricular hypertrophy ( Nicholas product ) Abnormal ECG When compared with ECG of 29-AUG-2022 01:33, No significant change was found Referred By: Generic ED Physician Electronically Signed By:HAYDEN MATHIAS
--- NOTE | ~2022-09-02 | XR_ITS ---
EXAMINATION: XR CHEST CLINICAL INFORMATION: Chest pain COMPARISON: None TECHNIQUE: Frontal view of the chest was obtained. FINDINGS: Cardiomegaly. No CHF. No significant abnormality is otherwise noted involving the heart, lungs, mediastinum, bony thorax or soft tissues. XR/XR chest 1V IMPRESSION: No acute pulmonary disease. Cardiomegaly.
[2022-09-02 21:05] VITALS: BP 119/87; PULSE 111; RESP 16; TEMP 36.7; O2SAT 99; BMI 27.3
[2022-09-02 21:45] LABS: MANUAL DIFF FLAG NO
[2022-09-02 21:47] LABS: Basophils Percent Auto 0.5 % (0-2); Eosinophils Absolute Auto 0.1 X10*3/uL (0.0-0.4); Eosinophils Percent Auto 0.8 % (0-4); Hematocrit 41.7 % (42.0-52.0); Hemoglobin 12.7 g/dl (14.0-18.0); Imm Gran Abs Auto 0.02 X10*3/uL (0.00-0.03); Imm Gran Pct Auto 0.3 % (0.0-0.4); Lymphocytes Absolute Auto 1.8 X10*3/uL (1.2-4.9); Lymphocytes Percent Auto 29.7 % (20-40); Mean Corpuscular HGB Conc 30.5 g/dl (31.0-36.0); Mean Corpuscular Hemoglobin 22.8 pg (27.0-33.0); Mean Corpuscular Volume 74.7 fL (80.0-98.0); Mean Platelet Volume 10.3 fL (9.4-12.4); Monocytes Absolute Auto 0.6 X10*3/uL (0.1-1.2); Monocytes Percent Auto 10.6 % (2-11); NRBC Pct Auto 0.7 /100WBC (0.0-0.2); Neutrophils Absolute Auto 3.5 x10*3/uL (2.0-8.3); Neutrophils Percent Auto 58.1 % (45-73); Platelet Count 185 X10*3/uL (160-400); Red Blood Count 5.58 X10*6/uL (4.60-5.80); Red Cell Distribution Width 21.5 % (11.0-16.0)
[2022-09-02 21:55] VITALS: BP 115/85; PULSE 100; RESP 22; TEMP 36.7; O2SAT 100
--- NOTE | 2022-09-02 22:01 | MHC.EDTECH ---
Patient EKG is done in triage and undocumented JESSIKA Barreto was made aware
[2022-09-02 22:03] LABS: Alanine Aminotransferase 124 U/L (0-40); Alkaline Phosphatase 107 U/L (39-117); Anion Gap 14 (12-20); Aspartate Amino Transferase 71 U/L (5-37); Bilirubin Total 1.4 mg/dL (0.0-1.0); Blood Urea Nitrogen 17 mg/dL (9-16); Calcium 8.5 mg/dL (8.4-10.2); Carbon Dioxide 22 mmol/L (22-29); Chloride 107 mmol/L (96-108); Creatinine Clr Calc Pharmacy 82.7; Estimated Glomerular Filt Rate > 60; Glucose Random 110 mg/dL (60-115); Potassium 4.6 mmol/L (3.3-5.1); Sodium 138 mmol/L (135-145); Total Protein 6.3 g/dL (6.5-8.0)
[2022-09-02 22:05] LABS: Troponin-I High Sensitivity 7.3 ng/L (<3.5-35.0)
[2022-09-02 22:45] LABS: Influenza A PCR NEGATIVE (Negative); Influenza B PCR NEGATIVE (Negative); Resp Syncy Virus RNA Qual PCR NEGATIVE (Negative); SARS COV2 PCR INHOUSE NEGATIVE (Negative)
--- NOTE | 2022-09-02 22:45 | ED_ITS ---
HPI - Chest Pain General Chief Complaint: Chest Pain Stated Complaint: chest pain/anxiety Time Seen by Provider: 09/02/22 22:27 Source: patient and family Mode of arrival: ambulatory Limitations: no limitations History of Present Illness HPI narrative: 52-year-old male with known history of anxiety came in for chest pain that started about 10 hours ago while he was home at rest time, then pain was migrated to mid abdomen, patient got anxious with hyperventilation came to the emergency department, presented last week to the hospital with similar symptoms patient is very familiar with his symptoms and anxiety. Patient think that today's symptoms is due to his anxiety. Related Data Previous Rx's Medication Instructions Recorded tramadol 50 mg tablet 50 mg PO Q6H PRN pain #20 tabs 05/22/22 cephalexin 500 mg capsule 500 mg PO Q6H 7 days #28 caps 05/30/22 Allergies Allergy/AdvReac Type Severity Reaction Status Date / Time No Known Allergies Allergy Verified 11/15/21 23:02 Review of Systems Review of Systems: All other systems are reviewed and are negative Constitutional: Reports as per HPI and Reports no additional constitutional complaints Eyes: Reports as per HPI and Reports no additional eye complaints Reports system reviewed and no additional complaints, except as documented Cardiovascular: Reports as per HPI and Reports no additional cardiovascular complaints Respiratory: Reports as per HPI and Reports no additional respiratory complaints Gastrointestinal: Reports as per HPI and Reports no additional gastrointestinal complaints Genitourinary: Reports no additional female genitourinary complaints Musculoskeletal: Reports no additional musculoskeletal complaints Skin/Breast: Reports system reviewed and no additional complaints, except as docu Psychiatric: Reports no additional psychiatric complaints Endocrine: Reports no additional endocrine complaints Hematologic/Lymphatic: Reports no additional hematologic/lymphatic complaints Allergic/Immunologic: Reports no additional allergic/immunologic complaints Reports system reviewed and no additional complaints, except as documented and Reports Abnormal speech present [facility] Past Medical History Medical History Colonic polyp Surgical History History of total colectomy Social History Social History Advance Directives: No Advance Directives Information Provided: No Physical Exam Vital Signs: Vital Signs: Last Vital Signs Temp 98.0 F 09/02/22 21:55 Pulse 98 09/02/22 23:40 Resp 18 09/02/22 23:40 BP 111/85 09/02/22 23:40 Pulse Ox 100 09/02/22 23:40 O2 Del Method 09/02/22 23:40 BMI result Body Mass Index 27.3 Vital signs have been reviewed as appeared to be correct. Blood pressure normal. Heart rate normal. Respiration rate normal. Temperature normal. Oxygen saturation normal. Appearance: Anxious, Alert. Oriented X3. No acute distress. Head: Normal external exam. Normocephalic. Atraumatic. No Cavanaugh signs noted. No raccoon eyes noted Eyes: PERRLA. EOMI. Conjunctiva and sclera normal. Eyelids normal. ENT: TM's Normal. Pharynx normal. Uvula midline. Moist mucous membranes. No trismus noted. No drooling noted. No muffled voice noted. Neck: Normal inspection. Neck supple. FROM. No adenopathy. Thyroid Normal. No meningeal signs. No neck mass noted. CVS: Normal heart rate and rhythm. Heart sound normal. No murmurs noted. Pulses normal throughout. Respiratory: No respiratory distress. Painless inspiration. Breath sounds normal. No wheezes/rales/rhonchi noted. Chest nontender. No accessory muscle usage noted or decreased air movement noted. Abdomen: Soft and nontender. Bowel sounds normal in all 4 quadrants. No distention noted. No organomegaly noted. No visible injury noted. Back: No CVA tenderness. Full range of motion noted. Skin: Skin warm and dry. Normal skin color. Normal skin turgor. No rashes/lesions/lacerations noted. Extremities: No lower extremity edema. Extremities exhibit normal range of motion. Extremities nontender. Neuro: Oriented X 3. Cranial nerve exam: II-XII are grossly intact No motor deficit. No sensory deficit. Reflexes normal. Course Course Course Narrative: 52-year-old male with history of anxiety came in with chest pain/abdominal pain. Benign physical exam and labs are unremarkable. Patient's symptoms improved after was given Ativan in the emergency department. Patient is complaining of very mild epigastric pain which is not tender to to exam given Maalox and Pepcid improved. Slight elevation of LFTs patient decline drinking alcohol for at least few months, was instructed to follow-up with his PCP until then to avoid fatty greasy food and to avoid taking Tylenol. Medications Administered Discontinued Medications Generic Name Dose Route Start Last Admin Trade Name Monica PRN Reason Stop Dose Admin Lorazepam 2 mg 09/02/22 23:31 09/02/22 23:39 Lorazepam 1 Mg Tablet PO 09/02/22 23:32 2 mg ONCE ONE Administration Medical Decision Making Differential Diagnosis Differential Diagnoses: The differential diagnosis associated with the presentation includes (Chest pain, ACS, pneumonia, pneumothorax, anxiety.) Lab Data MDM Lab Attestation statement: I reviewed the patient's lab results. 09/02/22 21:41 09/02/22 21:41 Labs: Lab Results 09/02/22 09/02/22 09/02/22 Range/Units 21:41 21:41 21:41 WBC 6.0 (4.8-10.8) X10*3/uL RBC 5.58 (4.60-5.80) X10*6/uL Hgb 12.7 L (14.0-18.0) g/dl Hct 41.7 L (42.0-52.0) % MCV 74.7 L (80.0-98.0) fL MCH 22.8 L (27.0-33.0) pg MCHC 30.5 L (31.0-36.0) g/dl RDW 21.5 H (11.0-16.0) % Plt Count 185 (160-400) X10*3/uL MPV 10.3 (9.4-12.4) fL Immature Gran % (Auto) 0.3 (0.0-0.4) % Neut % (Auto) 58.1 (45-73) % Lymph % (Auto) 29.7 (20-40) % [place] % (Auto) 10.6 (2-11) % Eos % (Auto) 0.8 (0-4) % Baso % (Auto) 0.5 (0-2) % Lymph # (Auto) 1.8 (1.2-4.9) X10*3/uL [place] # (Auto) 0.6 (0.1-1.2) X10*3/uL Eos # (Auto) 0.1 (0.0-0.4) X10*3/uL Baso # (Auto) 0.0 (0.0-0.2) X10*3/uL Abs Immat Gran (auto) 0.02 (0.00-0.03) X10*3/uL Absolute Neuts (auto) 3.5 (2.0-8.3) x10*3/uL Absolute Nucleated RBC 0.040 H (0.0-0.012) X10*3/uL Nucleated RBC % (auto) 0.7 H (0.0-0.2) /100WBC Sodium 138 (135-145) mmol/L Potassium 4.6 (3.3-5.1) mmol/L Chloride 107 (96-108) mmol/L Carbon Dioxide 22 (22-29) mmol/L Anion Gap 14 (12-20) BUN 17 H (9-16) mg/dL Creatinine 1.01 (0.5-1.4) mg/dL Estim Creat Clear Calc 82.7 Estimated GFR > 60 Random Glucose 110 (60-115) mg/dL Calcium 8.5 (8.4-10.2) mg/dL Total Bilirubin 1.4 H (0.0-1.0) mg/dL AST 71 H (5-37) U/L ALT 124 H (0-40) U/L Alkaline Phosphatase 107 (39-117) U/L Troponin I High Sens 7.3 (<3.5-35.0) ng/L Total Protein 6.3 L (6.5-8.0) g/dL Albumin 4.0 (3.5-5.0) g/dL Influenza Type A (PCR) (Negative) Influenza Type B (PCR) (Negative) RSV RNA Qual (PCR) (Negative) SARS-CoV-2 RNA (RT-PCR) (Negative) 09/02/22 Range/Units 22:05 WBC (4.8-10.8) X10*3/uL RBC (4.60-5.80) X10*6/uL Hgb (14.0-18.0) g/dl Hct (42.0-52.0) % MCV (80.0-98.0) fL MCH (27.0-33.0) pg MCHC (31.0-36.0) g/dl RDW (11.0-16.0) % Plt Count (160-400) X10*3/uL MPV (9.4-12.4) fL Immature Gran % (Auto) (0.0-0.4) % Neut % (Auto) (45-73) % Lymph % (Auto) (20-40) % [place] % (Auto) (2-11) % Eos % (Auto) (0-4) % Baso % (Auto) (0-2) % Lymph # (Auto) (1.2-4.9) X10*3/uL [place] # (Auto) (0.1-1.2) X10*3/uL Eos # (Auto) (0.0-0.4) X10*3/uL Baso # (Auto) (0.0-0.2) X10*3/uL Abs Immat Gran (auto) (0.00-0.03) X10*3/uL Absolute Neuts (auto) (2.0-8.3) x10*3/uL Absolute Nucleated RBC (0.0-0.012) X10*3/uL Nucleated RBC % (auto) (0.0-0.2) /100WBC Sodium (135-145) mmol/L Potassium (3.3-5.1) mmol/L Chloride (96-108) mmol/L Carbon Dioxide (22-29) mmol/L Anion Gap (12-20) BUN (9-16) mg/dL Creatinine (0.5-1.4) mg/dL Estim Creat Clear Calc Estimated GFR Random Glucose (60-115) mg/dL Calcium (8.4-10.2) mg/dL Total Bilirubin (0.0-1.0) mg/dL AST (5-37) U/L ALT (0-40) U/L Alkaline Phosphatase (39-117) U/L Troponin I High Sens (<3.5-35.0) ng/L Total Protein (6.5-8.0) g/dL Albumin (3.5-5.0) g/dL Influenza Type A (PCR) NEGATIVE (Negative) Influenza Type B (PCR) NEGATIVE (Negative) RSV RNA Qual (PCR) NEGATIVE (Negative) SARS-CoV-2 RNA (RT-PCR) NEGATIVE (Negative) Independent Interpretation I performed an independent interpretation of an: EKG (Sinus tachycardia at 00:10 5 beats per minutes, LVH, left axis deviation, LBBB, no change from previous EKG.) and Plain X-Ray (No acute pathology.) Radiology Impression Discussion of test interpretation with radiology: I have reviewed the radiologist's reading. Chronic Conditions Patient?s care impacted by: Other (Chronic anxiety) Discharge Plan Discharge Clinical Impression: Atypical chest pain, Anxiety, Elevated liver function tests Patient Disposition: Home, Self-Care Instructions: Anxiety (ED) Additional Instructions: Keep your appointment with your PCP as scheduled this week and discuss with him the elevation of your liver function test. Prescriptions: No Action tramadol 50 mg tablet 50 mg PO Q6H PRN (Reason: pain) Qty: 20 0RF cephalexin 500 mg capsule 500 mg PO Q6H 7 Days Qty: 28 0RF Referrals: [facility] [Primary Care Provider] -
[2022-09-02] MEDS: LORazepam 1 MG TABLET 2 MG PO (23:39)
[2022-09-02 23:40] VITALS: BP 111/85; PULSE 98; RESP 18; O2SAT 100
[2022-09-03] VITALS: BP 118/26; PULSE 96; RESP 20; O2SAT 100
[2022-09-03] MEDS: Famotidine/PF 20 MG/2 ML VIAL IVPUSH (00:32)
[2022-09-03] MEDS: Magnesium Hydrox/Alum Hydrox 30 ML ORAL.SUSP PO (00:32)
--- NOTE | 2022-09-03 00:37 | PC.NURSE ---
pt medicated for pain unchanged by ativan given earlier. skin pink warm and dry no s/s of distress, at bedside. pt pain level 7/10 to mid upper slightly to the right. no n/v/d
== END 2022-09-03 00:54 | disposition home or self-care (01) ==
PROVIDERS: Emergency Provider Emergency Medicine
DX: R07.89 Other chest pain (principal); F41.1 Generalized anxiety disorder; F43.0 Acute stress reaction; R79.89 Other specified abnormal findings of blood chemistry; Z20.822 Contact with and (suspected) exposure to COVID-19; Z20.828 Contact with and (suspected) exposure to other viral communicable diseases; Z79.899 Other long term (current) drug therapy
CPT/HCPCS: 0241U; 36415; 71045; 80053; 84484; 85025; 93005; 96374; 99284; 99285

== ENCOUNTER 2024-08-16 17:14 | Emergency (ER) | payer MEDICARE, MEDICAID, SELFPAY ==
[2024-08-16 17:28] VITALS: BP 118/89; PULSE 102; RESP 16; TEMP 36.4; O2SAT 97; BMI 28.6
--- NOTE | 2024-08-16 17:31 | ED_ITS ---
HPI - General Adult General Chief complaint: General Medical Stated complaint: Epistaxis Time Seen by Provider: 08/16/24 17:51 Source: patient Mode of arrival: ambulatory Limitations: language barrier (Afghan-speaking bridge expert utilized) History of Present Illness ED Provider: Maddison Boss NP HPI narrative: Patient is a 54-year-old male who presents emergency department for evaluation of epistaxis from the right nare. He reports for many years he has always experienced a small amount of bleeding from the right nostril typically after blowing his nose or sneezing. This might last only a few seconds or a couple of minutes. However he states that he sneezed today blew his nose subsequently and has had 45 minutes of bright red blood from his right nostril. He does admit to a history of chronic sinus troubles he denies use of any intranasal sprays. He experiences this issue whether he is living in a dry climate such as current local climate but also in [place] as well. He is on low-dose aspirin daily but no further anticoagulants. He denies any associated headache, vision changes, dizziness, lightheadedness, additional sources of bleeding, chest pain, shortness of breath. Denies any trauma or injury. Related Data Previous Rx's ?Medication ?Instructions ?Recorded tramadol 50 mg tablet 50 mg PO Q6H PRN pain #20 tabs 05/22/22 cephalexin 500 mg capsule 500 mg PO Q6H 7 days #28 caps 05/30/22 Allergies Allergy/AdvReac Type Severity Reaction Status Date / Time No Known Allergies Allergy Verified 08/16/24 17:32 Review of Systems Review of Systems: Yes all other systems are reviewed and are negative PMFSH Past Medical History Attestation statement: The following information was validated with the patient. Source: old records reviewed Medical History Colonic polyp Surgical History History of total colectomy Social History Social History Alcohol intake: never Advance Directives: No Advance Directives Information Provided: No Do you have a plan to hurt others: No Plan Physical Exam ED Vital Signs: Vital Signs - 24 hr 08/16/24 17:28 08/16/24 19:52 Temperature 97.5 F 97.5 F Pulse Rate 102 H 102 H Respiratory Rate 16 16 Blood Pressure 118/89 118/89 Pulse Oximetry 97 97 Oxygen Delivery Method Room Air Room Air BMI result Body Mass Index 28.6 Course Course Course Narrative: RME: 54 yold male presents to the ED for right nostril bleeding after sneezing hard. patient denies any trauma. patient states nose bleeding started 40 minutes ago. negative for blood in posterior pharynx. Right nostril has slight blood. nose clamps placed on nostril Reevaluation(s) Reevaluation #1: Hemostasis achieved with 2 sprays of Afrin and clamping nostrils against the septum continuously. Clamp was removed, monitored for 30 minutes following without recurrence of bleeding. Discussed with patient may be secondary to aspirin, also secondary to chronic rhinitis/sinusitis, discussed continued use of his OTC antihistamine. Again without evidence of posterior bleed. Reviewed worrisome signs and symptoms that would warrant re-evaluation in the emergency department. Outpatient follow-up primary care doctor. All questions answered. Stable for discharge Medications Administered Discontinued Medications Generic Name Dose Route Start Last Admin Trade Name Freq PRN Reason Stop Dose Admin Oxymetazoline HCl 2 spray 08/16/24 17:51 08/16/24 17:59 Oxymetazoline Hcl 0.05 % Nasal 15 Ml [place] NOSTRIL-B 08/16/24 17:52 2 spray ONCE ONE Administration Medical Decision Making Medical Decision Making [facility] Narrative: Patient is a 54 year old male with past medical History of total colectomy secondary to polyps, cardiac pacemaker by his account was placed in 2022 due to complication during cholecystectomy with hyperkalemia who presents emergency department for evaluation of epistaxis from the right nare. This is acute on chronic though he does admit that this is the longest that it has occurred for. He reports no additional symptoms. The time of my evaluation he has a cotton pledget in place with a nasal clamp. Upon removal of the nasal turbinate is extremely erythematous and excoriated, does not appear to have any active source of bleeding. No blood to the posterior oropharynx. Inserted Afrin and replaced nasal clamp will reassess. Differential Diagnosis Differential Diagnoses: The differential diagnosis associated with the presentation includes (epistaxis, posteror nasopharngeal bleed, no septal hematoma, chronic rhinitis) Independent Historian Clinical information obtained from an independent historian. History obtained from or confirmed by: Spouse External Record Review External record reviewed: Outpatient record Chronic Conditions Patient?s care impacted by: Other (see narrative above) Discharge Plan Discharge Clinical Impression: Epistaxis Patient Disposition: Home, Self-Care Instructions: Nosebleed (ED) Additional Instructions: Consider use of a saline nasal spray to keep the nostrils moistened, also consider use of a humidifier in the room especially when sleeping at night. Refrain from forcefully blowing your nose over the next few days. Follow-up with your primary care doctor. Return to emergency department any new or worsening symptoms or concerns Prescriptions: No Action tramadol 50 mg tablet 50 mg PO Q6H PRN (Reason: pain) Qty: 20 0RF cephalexin 500 mg capsule 500 mg PO Q6H 7 Days Qty: 28 0RF Interventions: ED Discharge Assessment Last Done: 08/16/24 19:52 Discharge Date/Time: 08/16/24 19:52 Print Language: Afghan
[2024-08-16] MEDS: Oxymetazoline HCl 0.05 % Nasal 15 ML SPRAY 2 SPRAY NOSTRIL-B (17:59)
--- OUTSIDE RECORDS SUMMARY | 2024-08-16 18:20 | XMS_ITS | Clinical Summary ---
Author Organization [facility] Address [address] [place] [address] Phone Care Team Providers Care Painter Ski Edge Name Role Phone Unavailable Primary Care Provider Unavailabl e Medications valsartan (DIOVAN) 40 MG tablet TOME CEZAR TABLETA TODOS LOS D 3 Active torsemide (DEMADEX) 20 MG tablet 3 Active spironolactone (ALDACTONE) 25 MG tablet TOME CEZAR TABLETA TODOS LOS D 3 Active sertraline (ZOLOFT) 25 MG tablet TOME CEZAR TABLETA POR V A ORAL TODOS LOS D 3 Active nystatin (MYCOSTATIN) 940912 UNIT/ML suspension ENJUAGAR Y ESCUPIR 4 ML POR LA BOCA CUATRO VECES AL BRENDA POR 7 ALLISON 3 Active metoprolol succinate XL (TOPROL XL) 50 MG 24 hr tablet 3 Active LORazepam (ATIVAN) 1 MG tablet TOME CEZAR TABLETA POR V A ORAL DOS VECES AL D A FOR 7 DAYS CUANDO SEA NECESARIO FOR ANXIETY 3 Active lisinopril 5 MG tablet TOME CEZAR TABLETA TODOS LOS D 3 Active furosemide (LASIX) 20 MG tablet TOME CEZAR TABLETA TODOS LOS D 3 Active Farxiga 10 MG tablet 3 Active carvedilol (COREG) 6.25 MG tablet TOME CEZAR TABLETA DOS VECES AL D A 3 Active atorvastatin (LIPITOR) 40 MG tablet TOME CEZAR TABLETA TODOS LOS D 3 Active Aspirin Low Dose 81 MG EC tablet TOME CEZAR TABLETA TODOS LOS D 3 Active acetaminophen (TYLENOL) 325 MG tablet TOME DOS TABLETAS POR V A ORAL CADA SEIS HORAS CUANDO SEA NECESARIO 3 Active Active Problems Problem Noted Date Diagnosed Date History of hernia repair 12/12/2022 Overview (12/12/2022): 06/26 -- parastomal Family history of malignant neoplasm of thyroid 12/12/2022 Familial multiple polyposis syndrome 12/12/2022 Disorder of abdominal wall 12/12/2022 Overview (12/12/2022): repaired 04/26. Colostomy present 12/12/2022 Cardiac defibrillator in situ 12/12/2022 Allergic rhinitis 12/12/2022 Heart failure with reduced ejection fraction History of colectomy 12/12/2022 Left bundle-branch block 12/12/2022 Low back pain 12/12/2022 Mitral valve regurgitation 12/12/2022 Nonischemic congestive cardiomyopathy 12/12/2022 Prediabetes 12/12/2022 Akinesia 12/04/2022 Acidosis 12/04/2022 Hyperkalemia 12/04/2022 Eczema 12/27/2009 Microcytic anemia 12/27/2009 Pain of joint of knee 09/14/2009 Small bowel obstruction 01/20/2008 Overview (12/12/2022): recurrent 06/26. Immunizations Name Administration Dates Next Due H1N1 Inj 09/14/2009 Hep A, Unspecified 08/20/2007,03/20/2007 Hep B, Unspecified 08/20/2007,05/21/2007, 007 Hepatitis B 03/20/2007 Influenza Whole 04/21/2010 Influenza, Quadrivalent, Pre servative Free 05/27/2022 Influenza, Unspecified 05/19/2019,2017,08/09/2017,04/26,06/08/2013,04/11/2011,06/25/2005 [place] [employer] SARS-COV-2 10/21/2020 Culture Machine SARS-COV-2 07/04/2021 Pneumococcal Polysaccharide 06/19/2013, 5 Tdap 11/15/2021,09/14/2009 Family History Medical History Relation Comments Cancer Mother Relation Status Comments Mother Social History Tobacco Use Types Packs/Day Years Used Date Smoking Tobacco: Never Tobacco Cessation:Counseling Given: Not Answered Alcohol Use Standard Drinks/Week Comments Not Currently 0 (1 standard drink = 0.6 oz pur e alcohol) Sex and Gender Information Value Date Recorded Sex Assigned at Not on file Legal Sex Male 1:17 PM EDT Gender Identity Not on file Sexual Orientation Not on file Plan of Treatment Health Maintenance Due Date Last Done Comments Hepatitis B Vaccine (1 of 3 - 19+ 3-dose series) 1989 08/20/2007, 05/21/2007, 03/20/2007, Additional history exists Colorectal Cancer Screening: Annual FOBT 2019 Colorectal Cancer Screening: Colonoscopy 2019 Colorectal Cancer Screening: Sigmoidoscopy 2019 Influenza Vaccine (#1) 2024 2, 05/19/2019, 06/26/2018, Additional history exists Pneumococcal Vaccine: Pediatrics (0 to 5 Years) and At-Risk Patients (6 to 64 Years) Aged Out 06/19/2013, 06/25/2005 No longer eliyousif fournier based on patient's age to complete this topic Insurance [place]
[2024-08-16 19:52] VITALS: BP 118/89; PULSE 102; RESP 16; TEMP 36.4; O2SAT 97
== END 2024-08-16 19:52 | disposition home or self-care (01) ==
PROVIDERS: Emergency Provider Emergency Medicine
DX: R04.0 Epistaxis (principal); J31.0 Chronic rhinitis
CPT/HCPCS: 99282